=== PATIENT | male | born 1980 | race Two or more races ===

== ENCOUNTER 2016-05-27 23:45 | Emergency (ER) | payer SELFPAY | END 2016-05-28 01:20 | disposition home or self-care (01) | LOC: D.ER 23:45 | DX: S61.210A Laceration without foreign body of right index finger without damage to nail, initial encounter (principal); S61.212A Laceration without foreign body of right middle finger without damage to nail, initial encounter; W29.8XXA Contact with other powered hand tools and household machinery, initial encounter; Y93.89 Activity, other specified; Y92.89 Other specified places as the place of occurrence of the external cause ==